=== PATIENT | male | born 2000 | race Two or more races ===

== ENCOUNTER 2024-09-20 20:31 | Emergency (ER) | payer OTHER ==
[~2024-09-20] VITALS: Ht 165.1 cm; Wt 74.8 kg
[2024-09-20 23:10] VITALS: BP 134/79; PULSE 71; RESP 20; TEMP 98.7; O2SAT 97
[2024-09-20] MEDS ORDERED: ERY05OO OP (23:16)
--- NOTE | 2024-09-20 23:20 | ED.PDOC ---
Eye-HPI HPI Comments 23-YEAR-OLD MALE PRESENTS TO ER WITH BILATERAL EYE COMPLAINT X2 DAYS. PATIENT REPORTS HE HAS BEEN EXPERIENCING ITCHINESS, BURNING SENSATION AND YELLOW CRUSTY DRAINAGE TO BILATERAL EYES X2 DAYS. DENIES USE OF MEDICATIONS FOR CURRENT SYMPTOMS. PATIENT ALSO REPORTS 4/10 SORE THROAT X2 DAYS. PATIENT PRESENTS TO ER AMBULATORY ON ARRIVAL, WITH STEADY GAIT, IN NO DISTRESS AND STATES HE DOES WEAR GLASSES, DENYING USE OF CONTACTS. DENIES SKIN CHANGES, VISION CHANGES, FOREIGN BODY SENSATION OR ANY FURTHER SYMPTOMS/COMPLAINTS Chief Complaint: Eye Problem Time Seen by MD: 20:51 Primary Care Provider: UNKNOWN Reviewed Notes: Nurses Notes, Medications, Allergies Allergies: Coded Allergies: NO KNOWN ALLERGIES (Unverified , 09/20/24) Information Source: Patient Mode of Arrival: Ambulatory Past Medical History PAST MEDICAL HISTORY: Denies Surgical History: Denies all surgeries Family History Family History: Unknown Social History Smoker: Non-Smoker Alcohol: Denies ETOH Use Drugs: Denies Drug Use Lives In: Home Constitutional: denies: chills, diaphoresis, fatigue, fever, malaise, sweats, weakness, others EENTM: reports: others ( STATED IN HPI) Respiratory: denies: cough, hemoptysis, orthopnea, SOB at rest, shortness of breath, SOB with excertion, stridor, wheezing, others Cardiovascular: denies: chest pain, dizzy spells, diaphoresis, Dyspnea on exertion, edema, irregular heart beat, left arm pain, lightheadedness, palpitations, PND, syncope, others Gastrointestinal: denies: abdomen distended, abdominal pain, blood streaked bowels, constipated, diarrhea, dysphagia, difficulty swallowing, hematemesis, melena, nausea, poor appetite, poor fluid intake, rectal bleeding, rectal pain, vomiting, others Genitourinary: denies: burning, dysuria, flank pain, frequency, hematuria, incontinence, penile discharge, penile sore, pain, testicle pain, testicle swelling, urgency, others Neurological: denies: dizziness, fainting, headache, left sided numbness, left sided weakness, numbness, paresthesia, pre-existing deficit, right sided numbness, right sided weakness, seizure, speech problems, tingling, tremors, weakness, others Musculoskeletal: denies: back pain, gout, joint pain, joint swelling, muscle p ain, muscle stiffness, neck pain, others Integumetry: denies: bruises, change in color, change in hair/nails, dryness, laceration, lesions, lumps, rash, wounds, others Allergic/Immunocompromised: denies: Difficulty Healing, Frequent Infections, Hives, Itching, others Hematologic/Lymphatic: denies: anemia, blood clots, easy bleeding, easy bruising, swollen glands, others Endocrine: denies: excessive hunger, excessive sweating, excessive thirst, excessive urination, flushing, intolerance to cold, intolerance to heat, unexplained weight gain, unexplained weight loss, others Psychiatric: denies: anxiety, bipolar disorder, depression, hopeless, panic disorder, schizophrenia, sleepless, suicidal, others Physical Exam General Appearance: No Apparent Distress HEENT: PERRL/EOMI, Pharynx Normal, TMs Normal, Other (MILD SUBCONJUNCTIVAL INJECTION AND MINIMAL YELLOW CRUSTY DRAINAGE NOTED TO BILATERAL EYES, NO FOREIGN BODY APPRECIATED. NO SKIN CHANGES NOTED TO BILATERAL EYES) Neck: Full Range of Motion, Non-Tender, Normal Respiratory: Chest Non-Tender, Lungs Clear, No Accessory Muscle Use, No Respiratory Distress, Normal Breath Sounds Cardiovascular: No Murmur, No Gallop, Regular Rate/Rhythm Breast Exam: Deferred Gastrointestinal: NOT DONE Genitalia: Deferred Pelvic: Deferred Rectal: Deferred Extremities: Normal capillary refill, Normal range of motion Neurologic: Alert, personal banker II-XII nml as Tested, No Motor Deficits, Normal Affect, Normal Mood, No Sensory Deficits Cerebellar Function: Normal Reflexes: Normal Skin: Dry, Normal Color, Warm Lymphatic: No Adenopathy Was a procedure done? Was a procedure done?: No Sedation Sedation?: No EENT DIFF Eye: Foreign Body-Corneal, Orbital Cellulits, Periorbital Cellulits X-Ray, Labs, Meds, VS Vital Signs Date Time Temp Pulse Resp B/P (MAP) Pulse Ox O2 Delivery O2 Flow Rate FiO2 09/20/24 21:12 98.7 71 20 134/79 (97) 97 IMPORTANCE OF GOOD HAND HYGIENE DISCUSSED AND ADVISED ADVISED TO FOLLOW UP WITH OPHTHALMOLOGY IN THREE DAYS IF SYMPTOMS DO NOT IMPROVE ADVISED TO FOLLOW UP WITH PCP IN 1-2 DAYS PATIENT VERBALIZED UNDERSTANDING AND AGREEABLE WITH CURRENT PLAN OF CARE ADVISED TO RETURN TO ER IMMEDIATELY IF SYMPTOMS WORSEN Time of 1ST Reevaluation: 22:54 Reevaluation 1ST: N/A Patient Education/Counseling: Diagnosis, Treatment, Prognosis, Need For Follow Up Family Education/Counseling: No Family Present Departure 1 Departure Time of Disposition: 23:12 Impression: Primary Impression: Bacterial conjunctivitis of both eyes Disposition: HOME / SELF CARE / HOMELESS Condition: Stable e-Prescriptions Erythromycin (Erythromycin) 5 Mg/Gm Oin 1 MG OP 6XD for 7 Days, #1 OIN 0 Refills Prov: DARIELA OG 09/20/24 Discharged With: Self Critical Care Note Critical Care Time?: No Stability Stability form required: No Heart Score Heart Score: Heart Score Response (Comments) Value History N/A 0 EKG N/A 0 Age N/A 0 Risk Factors N/A 0 Troponin N/A 0 Total 0 DARIELA OG Sep 20, 2024 23:20
== END 2024-09-20 23:25 | disposition home or self-care (01) ==
LOC: ER 20:31
DX: H10.89 Other conjunctivitis (principal)